=== PATIENT | male | born 1995 | race African-American/Black ===

== ENCOUNTER 2018-06-15 18:36 | Emergency (ER) | payer SELFPAY ==
[~2018-06-15] VITALS: Ht 182.9 cm; Wt 83.9 kg
[2018-06-15] MEDS ORDERED: LEVE500T9 PO (18:43)
--- NOTE | 2018-06-15 18:44 | NUR ---
PT IS IN ROOM #1B. DR WHEELER EVALUATED THE PT.
--- NOTE | 2018-06-15 19:02 | NUR ---
REPORT GIVEN TO SIGNALS [employer]LLIGENCE SUPERINTENDENT RN.
[2018-06-15] MEDS ORDERED: LEVETIRACETAM 250 MG TABLET ONE (19:08)
[2018-06-15] MEDS ORDERED: LEVETIRACETAM 250 MG TABLET PO ONE (19:15)
--- NOTE | 2018-06-15 19:17 | NUR ---
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 in for blood draw, family at bedside,
[2018-06-15 19:21] LABS: BASOPHILS % (AUTO) 0.3 % (0.0-2.0); EOSINOPHILS % (AUTO) 0.6 % (0.0-7.0); HEMATOCRIT 41.3 % (36.7-47.1); LYMPHOCYTES # (AUTO) 1.8 K/uL (20.0-40.0); LYMPHOCYTES % (AUTO) 22.2 % (20.5-51.5); MEAN CORPUSCULAR HEMOGLOBIN 30.4 uug (23.8-33.4); MEAN CORPUSCULAR HGB CONC 34 g/dL (32.5-36.3); MEAN CORPUSCULAR VOLUME 89.9 fL (73.0-96.2); MONOCYTES # (AUTO) 0.4 K/uL (2.0-10.0); MONOCYTES % (AUTO) 4.6 % (0.0-11.0); NEUTROPHILS # (AUTO) 5.7 K/uL (1.8-8.9); NEUTROPHILS % (AUTO) 72.3 % (38.5-71.5); PLATELET COUNT (AUTO) 160 K/uL (152-348); RED BLOOD CELL COUNT(AUTO) 4.59 MIL/uL (4.06-5.63); WHITE BLOOD COUNT (AUTO) 7.9 K/uL (3.6-10.2)
[2018-06-15 19:28] LABS: CREATININE 1.6 mg/dL (0.6-1.3); POTASSIUM 4.3 mmol/L (3.5-5.1)
--- NOTE | 2018-06-15 19:53 | NUR ---
Patient discharged to home in stable conditon. Written and verbal after care instructions given. Patient verbalizes understanding of instructions. Pt. d/c per MD orders, d/c papers signed, ID band/IV removed, all belongings w/ pt., left w/ family in private vehicle, no acute distress,
== END 2018-06-15 19:56 | disposition home or self-care (01) ==
LOC: ER 18:38
DX: G40.909 Epilepsy, unspecified, not intractable, without status epilepticus (principal); M25.511 Pain in right shoulder; Z79.899 Other long term (current) drug therapy
CPT/HCPCS: 36415; 73030; 85025; A4663